=== PATIENT | male | born 1995 | race Caucasian/White ===

== ENCOUNTER 2017-01-04 20:34 | Emergency (ER) | payer MEDICAID ==
[2017-01-04 21:05] VITALS: BP 134/91
== END 2017-01-04 22:41 | disposition home or self-care (01) ==
LOC: ED 20:34
DX: H60.91 Unspecified otitis externa, right ear (principal); J06.9 Acute upper respiratory infection, unspecified; R07.9 Chest pain, unspecified

== ENCOUNTER 2017-04-12 18:01 | Emergency (ER) | payer MEDICAID ==
[2017-04-12 20:34] VITALS: BP 147/78
== END 2017-04-12 20:34 | disposition home or self-care (01) ==
LOC: ED 18:01
DX: J06.9 Acute upper respiratory infection, unspecified (principal); J20.9 Acute bronchitis, unspecified